=== PATIENT | male | born 1960 | race Caucasian/White ===

== ENCOUNTER 2020-04-14 14:55 | Inpatient (IN) | payer OTHER ==
[~2020-04-14] VITALS: Ht 187.9 cm; Wt 134.8 kg
[2020-04-14 15:26] LABS: BASOPHILS % (AUTO) 1 % (0-10); EOSINOPHILS % (AUTO) 1 % (0-10); HEMATOCRIT 39 % (40-54); HEMOGLOBIN 13.3 G/DL (13.3-17.7); LYMPHOCYTES % (AUTO) 24 % (12-44); MEAN CORPUSCULAR HEMOGLOBIN 28 PG (25-34); MEAN CORPUSCULAR HGB CONC 34 G/DL (32-36); MEAN CORPUSCULAR VOLUME 82 FL (80-99); MEAN PLATELET VOLUME 10.6 FL (7.4-10.4); MONOCYTES % (AUTO) 10 % (0-12); NEUTROPHILS % (AUTO) 63 % (42-75); PLATELET COUNT 213 10^3/uL (130-400); WHITE BLOOD COUNT 5.7 10^3/uL (4.3-11.0)
[2020-04-14 15:27] LABS: BASOPHILS # (AUTO) 0.1 10^3/uL (0.0-0.1); EOSINOPHILS # (AUTO) 0.1 10^3/uL (0.0-0.3); LYMPHOCYTES # (AUTO) 1.4 X 10^3 (1.0-4.0); MONOCYTES # (AUTO) 0.6 X 10^3 (0.0-1.0); NEUTROPHILS # (AUTO) 3.6 X 10^3 (1.8-7.8)
--- NOTE | 2020-04-14 15:32 | Diagnostic Imaging Report ---
INDICATION: Chest pain, COVID infection. TECHNIQUE: Frontal chest obtained at 03:14 p.m. FINDINGS: Heart and mediastinal silhouette are normal in appearance. The lungs are clear. There is no pneumothorax or pleural fluid. IMPRESSION: Negative chest. Dictated by: Dictated on workstation # [id number]
[2020-04-14] MEDS ORDERED: NS (IVPB) 0 ML ONE (15:33)
[2020-04-14] MEDS ORDERED: dilTIAZem DRIP PRE-MIX 125 ML IV ONE (15:33)
[2020-04-14] MEDS ORDERED: dilTIAZem DRIP PRE-MIX 125 ML IV SCH ×3 (15:45→20:30)
[2020-04-14 15:54] LABS: ALANINE AMINOTRANSFERASE 133 U/L (0-55); ALKALINE PHOSPHATASE 63 U/L (40-136); BILIRUBIN,TOTAL 0.6 MG/DL (0.1-1.0); BUN/CREATININE RATIO 9; CALCIUM 8.9 MG/DL (8.5-10.1); CARBON DIOXIDE 25 MMOL/L (21-32); CHLORIDE 101 MMOL/L (98-107); CREATININE SERUM 1.02 MG/DL (0.60-1.30); GFR ESTIMATED > 60; GLUCOSE 106 MG/DL (70-105); POTASSIUM 2.8 MMOL/L (3.6-5.0); SODIUM 140 MMOL/L (135-145)
[2020-04-14 15:55] LABS: ALBUMIN 4.3 GM/DL (3.2-4.5); TOTAL PROTEIN 6.9 GM/DL (6.4-8.2)
[2020-04-14] MEDS ORDERED: Losartan (16:19)
[2020-04-14] MEDS ORDERED: PANT40TA52 PO (16:19)
--- NOTE | 2020-04-14 16:27 | ED General ---
General Chief Complaint: Cardiac/General Problems Stated Complaint: CHEST PAIN Nursing Triage Note: Pt presents from [facility] Walk In Care visit via 911, [facility] presents with 59 y/o male pt with chief c/o pressure of a congestion feeling since Sat night. Temp Sat night 101.0. Arrived to clinic in Sinus tachycardia/arrythmia 160's with HTN. EMS has delivered Adenocard 6 followed by 12 mg IV, Cardizem bolus 25 mg IV. Pt was given Labatolol 20 mg IV also. Arrived in a sinus tachy arrythmia. COVID positive and Flu negative. Nursing Sepsis Screen: Possible Sepsis Risk History of Present Illness Date Seen by Provider: Apr 14, 2020 Time Seen by Provider: 15:00 Initial Comments Patient is a 5-year-old male who presents from urgent care after complaining of chest pressure and chest chest pain and intermittent fever with change in taste. Symptom onset was 4 days ago. Chest pressure began yesterday with right-sided chest pain beginning several hours prior to ED arrival. Patient denies current fever, nausea, vomiting, sweats shortness of breath. No abdominal pain nausea vomiting. No leg pain or swelling. Patient given adenosine in the ambulance prior to ED arrival. Patient in a flutter with variable rate on ED arrival. No history of coronary disease, CAD or congestive heart failure. But does take blood pressure medications daily. Patient is a non-smoker. No other acute symptoms or complaints. Covid testing was performed at urgent care prior to patient's arrival and confirmed positive Covid status. Timing/Duration: 1-3 Hours Severity: Moderate Modifying Factors: improves with Other Associated Systoms: Shortness of Air Allergies and Home Medications Allergies Coded Allergies: No Known Drug Allergies (Unverified , 04/14/20) Patient Home Medication List Home Medication List Reviewed: Yes Review of Systems Review of Systems Constitutional: see HPI EENTM: see HPI Respiratory: see HPI Cardiovascular: see HPI Gastrointestinal: see HPI Genitourinary: see HPI Musculoskeletal: see HPI Skin: see HPI Psychiatric/Neurological: See HPI Hematologic/Lymphatic: See HPI Immunological/Allergic: see HPI All Other Systems Reviewed Negative Unless Noted: Yes Past Lctsqpk-Svnfug-Dpgxcz Hx Past Med/Social Hx: Reviewed Nursing Past Med/Soc Hx Patient Social History Alcohol Use: Occasionally Uses Smoking Status: Former Smoker Type Used: Cigarettes Former Smoker, Quit: Jun 11, 2019 Recent Infectious Disease Expo: No Immunizations Up To Date Date of Influenza Vaccine: Jan 11, 2020 Physical Exam Vital Signs Capillary Refill : Less Than 3 Seconds Height, Weight, BMI Height: '" Weight: lbs. oz. kg; 41.00 BMI Method: General Appearance: Other Eyes: Bilateral Eye Normal Inspection, Bilateral Eye PERRL, Bilateral Eye Other (Conjunctiva injected.) HEENT: PERRL/EOMI, Moist Mucous Membranes Neck: Full Range of Motion, Supple Respiratory: Chest Non Tender, Normal Breath Sounds Cardiovascular: Irregularly Irregular Gastrointestinal: Non Tender, Soft Extremity: No Calf Tenderness Neurologic/Psychiatric: Alert, Oriented x3 Skin: Normal Color Lymphatic: No Adenopathy Progress/Results/Core Measures Suspected Sepsis Recent Fever Within 48 Hours: No Infection Criteria Present: Suspected New Infection New/Unexplained Altered Menta: No Sepsis Screen: Possible Sepsis Risk SIRS Temperature: Pulse: 103 Respiratory Rate: 27 Laboratory Tests 04/14/20 15:10: White Blood Count 5.7 Blood Pressure 139 /82 Mean: 101 Laboratory Tests 04/14/20 15:10: Creatinine 1.02, Platelet Count 213, Total Bilirubin 0.6 Results/Orders Lab Results Laboratory Tests Test 04/14/20 15:10 Range/Units White Blood Count 5.7 4.3-11.0 10^3/uL Red Blood Count 4.79 4.35-5.85 10^6/uL Hemoglobin 13.3 13.3-17.7 G/DL Hematocrit 39 L 40-54 % Mean Corpuscular Volume 82 80-99 FL Mean Corpuscular Hemoglobin 28 25-34 PG Mean Corpuscular Hemoglobin Concent 34 32-36 G/DL Red Cell Distribution Width 15.0 H 10.0-14.5 % Platelet Count 213 130-400 10^3/uL Mean Platelet Volume 10.6 H 7.4-10.4 FL Immature Granulocyte % (Auto) 0 % Neutrophils (%) (Auto) 63 42-75 % Lymphocytes (%) (Auto) 24 12-44 % Monocytes (%) (Auto) 10 0-12 % Eosinophils (%) (Auto) 1 0-10 % Basophils (%) (Auto) 1 0-10 % Neutrophils # (Auto) 3.6 1.8-7.8 X 10^3 Lymphocytes # (Auto) 1.4 1.0-4.0 X 10^3 Monocytes # (Auto) 0.6 0.0-1.0 X 10^3 Eosinophils # (Auto) 0.1 0.0-0.3 10^3/uL Basophils # (Auto) 0.1 0.0-0.1 10^3/uL Immature Granulocyte # (Auto) 0.0 0.0-0.1 10^3/uL Sodium Level 140 135-145 MMOL/L Potassium Level 2.8 L 3.6-5.0 MMOL/L Chloride Level 101 98-107 MMOL/L Carbon Dioxide Level 25 21-32 MMOL/L Anion Gap 14 5-14 MMOL/L Blood Urea Nitrogen 9 7-18 MG/DL Creatinine 1.02 0.60-1.30 MG/DL Estimat Glomerular Filtration Rate > 60 BUN/Creatinine Ratio 9 Glucose Level 106 H 70-105 MG/DL Calcium Level 8.9 8.5-10.1 MG/DL Corrected Calcium 8.7 8.5-10.1 MG/DL Total Bilirubin 0.6 0.1-1.0 MG/DL Aspartate Amino Transf (AST/SGOT) 86 H 5-34 U/L Alanine Aminotransferase (ALT/SGPT) 133 H 0-55 U/L Alkaline Phosphatase 63 40-136 U/L Troponin I < 0.30 <0.30 NG/ML Pro-B-Type Natriuretic Peptide 1390.0 H <75.0 PG/ML Total Protein 6.9 6.4-8.2 GM/DL Albumin 4.3 3.2-4.5 GM/DL My Orders Orders - NICHOLE ALSTON DO Cbc With Automated Diff (04/14/20 15:13) Comprehensive Metabolic Panel (04/14/20 15:13) Chest 1 View Ap/Pa Only (04/14/20 15:13) Ekg-Prn For Chest Pain Or Rhyt (04/14/20 15:13) Troponin I Fs (04/14/20 15:13) Probnp Fs (04/14/20 15:13) Ns (Ivpb) (Sodium Chloride 0.9% Ivpb Bag (04/14/20 15:33) Diltiazem Drip Pre-Mix (Cardizem Drip Pr (04/14/20 15:33) Diltiazem Drip Pre-Mix (Cardizem Drip Pr (04/14/20 15:45) Vital Signs/I&O Capillary Refill : Less Than 3 Seconds Blood Pressure Mean: 101 Departure Communication (Admissions) EKG: Atrial flutter with variable block and rate in the 130s. Chest x-ray: No acute cardiopulmonary disease. Patient in a flutter with variable block. Cardizem drip initiated for rate control. Currently denies chest pain or shortness of breath while in the emergency department. Covid status positive. Will admit admit to hospitalist service at [facility]. Impression Primary Impression: Atrial flutter Additional Impressions: COVID-19 Accelerated hypertension Disposition: ADMITTED INPATIENT Condition: Critical Admissions Decision to Admit Reason: Admit from ER (General) Decision to Admit/Date: Apr 14, 2020 Time/Decision to Admit Time: 16:30 Departure-Patient Inst. Decision time for Depature: 16:30 NICHOLE ALSTON DO Apr 14, 2020 16:27
[2020-04-14] MEDS ORDERED: ENOXAPARIN 60 MG/0.6 ML (LOVENOX) SYR SC ONE (16:45)
[2020-04-14] MEDS ORDERED: DIGOXIN 0.25 MG/ML (LANOXIN) 2 ML AMP IV ONE (16:45)
[2020-04-14] MEDS ORDERED: NS IV 1000 ML 1,000 ML IV SCH (17:00)
[2020-04-14] MEDS ORDERED: LOSA100T57 PO (17:39)
[2020-04-14] MEDS ORDERED: diphenhydrAMINE 25 MG TAB (BENADRYL) PO PRN (20:15)
[2020-04-14] MEDS ORDERED: ONDANSETRON 4 MG (ZOFRAN) ORAL DISSOLVE TAB PO PRN (20:15)
[2020-04-14] MEDS ORDERED: MELATONIN 3 MG TABLET PO PRN (20:15)
[2020-04-14] MEDS ORDERED: ALPRAZolam 0.5 MG (XANAX) TAB PO PRN (20:15)
[2020-04-14] MEDS ORDERED: ONDANSETRON 4 MG/2 ML (SDV) Z0FRAN IVP PRN (20:15)
[2020-04-14] MEDS ORDERED: polyethylene glycoL POWDER 17 GM (MIRALAX) PACK PO PRN (20:15)
[2020-04-14] MEDS: NS IV 1000 ML 1,000 ML IV SCH (20:37)
[2020-04-14] MEDS ORDERED: POTASSIUM CL 10MEQ/50ML IVPB 300 ML IV ONE (21:07)
[2020-04-14] MEDS ORDERED: meTOprolol 5 MG/5 ML (LOPRESSOR) VIAL ONE (21:08)
[2020-04-14] MEDS: ACETAMINOPHEN 325 MG TABLET PO PRN (21:18)
[2020-04-14] MEDS: POTASSIUM CL 10MEQ/50ML IVPB 50 ML IV SCH ×4 (21:18→23:40)
[2020-04-14] MEDS: meTOprolol 5 MG/5 ML (LOPRESSOR) VIAL IV SCH (21:18)
[2020-04-14] MEDS: ENOXAPARIN 300 MG/3 ML (LOVENOX) MULTI-DOSE VIAL SQ SCH (21:25)
[2020-04-14] MEDS ORDERED: CATHETER FLUSH 10 ML SYR IV PRN (23:00)
[2020-04-14] MEDS ORDERED: NS 100 ML (IVPB) BAG IV ONE (23:00)
[2020-04-14] MEDS ORDERED: HOLD METFORMIN - RECEIVED CONTRAST 20 ML VIAL IV SCH (23:00)
[2020-04-14] MEDS ORDERED: IOHEXOL 350 MG/ML 100 ML (OMNIPAQUE 350) VIAL IV ONE (23:00)
[2020-04-15] MEDS: POTASSIUM CL 10MEQ/50ML IVPB 50 ML IV SCH ×5 (00:41→05:23)
[2020-04-15 03:45] LABS: BASOPHILS % (AUTO) 1 % (0-10); EOSINOPHILS # (AUTO) 0.1 10^3/uL (0.0-0.3); EOSINOPHILS % (AUTO) 1 % (0-10); HEMATOCRIT 36 % (40-54); LYMPHOCYTES # (AUTO) 1.6 10^3/uL (1.0-4.0); LYMPHOCYTES % (AUTO) 31 % (12-44); MEAN CORPUSCULAR HEMOGLOBIN 28 pg (25-34); MEAN CORPUSCULAR HGB CONC 34 g/dL (32-36); MEAN CORPUSCULAR VOLUME 85 fL (80-99); MEAN PLATELET VOLUME 10.4 fL (9.0-12.2); MONOCYTES # (AUTO) 0.5 10^3/uL (0.0-1.0); MONOCYTES % (AUTO) 9 % (0-12); NEUTROPHILS # (AUTO) 3.1 10^3/uL (1.8-7.8); NEUTROPHILS % (AUTO) 59 % (42-75); PLATELET COUNT 187 10^3/uL (130-400); WHITE BLOOD COUNT 5.3 10^3/uL (4.3-11.0)
[2020-04-15 04:04] LABS: ALANINE AMINOTRANSFERASE 110 U/L (0-55); ALBUMIN 3.6 GM/DL (3.2-4.5); ALKALINE PHOSPHATASE 47 U/L (40-136); BILIRUBIN,DIRECT 0.3 MG/DL (0.0-0.3); BILIRUBIN,INDIRECT 0.3 MG/DL; BILIRUBIN,TOTAL 0.6 MG/DL (0.1-1.0); BUN/CREATININE RATIO 8; CALCIUM 7.8 MG/DL (8.5-10.1); CARBON DIOXIDE 22 MMOL/L (21-32); CHLORIDE 107 MMOL/L (98-107); CREATININE SERUM 1.01 MG/DL (0.60-1.30); GFR ESTIMATED > 60; GLUCOSE 108 MG/DL (70-105); PHOSPHORUS 3.4 MG/DL (2.3-4.7); POTASSIUM 3.1 MMOL/L (3.6-5.0); SODIUM 142 MMOL/L (135-145); TOTAL PROTEIN 6.2 GM/DL (6.4-8.2)
[2020-04-15 04:07] LABS: MAGNESIUM 0.9 MG/DL (1.6-2.4)
[2020-04-15] MEDS: MAGNESIUM 1 GM/100 ML IVPB 100 ML IV SCH ×5 (04:15→07:26)
[2020-04-15] MEDS: NS IV 1000 ML 1,000 ML IV SCH ×4 (04:16→23:50)
--- NOTE | 2020-04-15 05:10 | Pulmonary Consultation ---
History of Present Illness History of Present Illness Date Seen by Provider: Apr 15, 2020 Time Seen by Provider: 05:05 Date of Admission History of Present Illness 59yo presented to ED secondary to worsening respiratory failure over the last 4 days. Chest pressure began yesterday with right-sided chest pain beginning several hours prior to ED arrival. Patient denies current fever, nausea, vomiting, sweats shortness of breath. No abdominal pain nausea vomiting. No leg pain or swelling. Patient given adenosine in the ambulance prior to ED arrival. Found to have AFlutter upon admission. No history of coronary disease, CAD or congestive heart failure. Patient is a non-smoker. Allergies and Home Medications Allergies Coded Allergies: No Known Drug Allergies (Unverified , 04/14/20) Home Medications Apixaban 5 Mg Tablet, 5 MG PO BID Prescribed by: RUTHIE CROCKER on 04/18/20 0807 Aspirin 81 Mg Tablet.dr, 81 MG PO DAILY Prescribed by: RUTHIE CROCKER on 04/18/20 0807 Diltiazem HCl 240 Mg Cap.er.24h, 240 MG PO DAILY Prescribed by: RUTHIE CROCKER on 04/18/20 0807 Hydrochlorothiazide 25 Mg Tablet, 25 MG PO DAILY Prescribed by: RUTHIE CROCKER on 04/18/20 0807 Losartan Potassium 100 Mg Tablet, 100 MG PO DAILY, (Reported) Metoprolol Succinate 25 Mg Tab.er.24h, 25 MG PO DAILY Prescribed by: RUTHIE CROCKER on 04/18/20 0807 Pantoprazole Sodium 40 Mg Tablet.dr, 40 MG PO DAILY, (Reported) Past Qgvmlqe-Ibothi-Bulxda Hx Past Med/Social Hx: Reviewed Nursing Past Med/Soc Hx Patient Social History Alcohol Use: Occasionally Uses Smoking Status: Former Smoker Type Used: Cigarettes Former Smoker, Quit: Jun 11, 2019 Recent Infectious Disease Expo: No Recent Hopitalizations: No Have you traveled recently?: No Immunizations Up To Date Date of Influenza Vaccine: Feb 10, 2020 Seasonal Allergies Seasonal Allergies: Yes (Environmental) Past Medical History Surgeries: Yes (Scapula bone removal but 1" for bone CA, hernia surgery x 2) Respiratory: No Cardiac: Yes High Cholesterol, Hypertension Neurological: No Genitourinary: No Gastrointestinal: Yes Gastroesophageal Reflux Musculoskeletal: No Endocrine: No HEENT: No Cancer: Yes (R scapula) Bone Psychosocial: No Integumentary: No Blood Disorders: No Review of Systems Time Seen by Provider: 05:13 Sepsis Event Evaluation Height, Weight, BMI Height: '" Weight: lbs. oz. kg; 38.57 BMI Method: Exam Exam Vital Signs Date Time Temp Pulse Resp B/P (MAP) Pulse Ox O2 Delivery O2 Flow Rate FiO2 04/15/20 04:00 76 18 130/89 (103) 96 Nasal Cannula 2.00 04/15/20 03:00 78 17 132/88 (103) 94 Nasal Cannula 2.00 04/15/20 02:49 37.4 Nasal Cannula 2.00 04/15/20 02:00 78 15 130/84 (99) 95 Nasal Cannula 2.00 04/15/20 01:00 73 13 134/81 (98) 96 Nasal Cannula 2.00 04/15/20 01:00 75 04/15/20 00:40 37.3 04/15/20 00:00 78 18 133/83 (100) 96 Nasal Cannula 2.00 04/14/20 23:05 37.9 Nasal Cannula 2.00 04/14/20 23:00 83 18 134/87 (103) 96 Room Air 04/14/20 22:03 94 Room Air 04/14/20 22:00 95 25 141/89 (106) 95 Room Air 04/14/20 21:30 168 15 111/83 (92) 94 Room Air 04/14/20 21:18 37.9 04/14/20 21:00 126 15 95/83 (87) 94 Room Air 04/14/20 20:45 152 21 147/85 (105) 97 Room Air 04/14/20 20:30 170 16 147/85 (105) 93 Room Air 04/14/20 20:20 172 04/14/20 20:10 37.9 170 24 164/119 (134) 96 Room Air 04/14/20 19:15 37.1 170 22 145/90 (101) 97 Room Air 2.00 04/14/20 14:56 38.2 103 27 139/82 (101) 97 Nasal Cannula 2.00 I & O 04/15/20 07:00 Intake Total 2520 ml Output Total 450 ml Balance 2070 ml Height & Weight Height: '" Weight: lbs. oz. kg; 38.57 BMI Method: General Appearance: Other HEENT: PERRL/EOMI, Moist Mucous Membranes Neck: Full Range of Motion, Supple Respiratory: Chest Non Tender, Normal Breath Sounds Cardiovascular: Irregularly Irregular Capillary Refill: Less Than 3 Seconds Extremity: No Calf Tenderness Neurologic/Psychiatric: Alert, Oriented x3 Skin: Normal Color Lymphatic: No Adenopathy Results Lab Laboratory Tests 04/14/20 15:10 04/15/20 03:35 Assessment/Plan Assessment/Plan COVID -Tested positive 03/14 -Symptoms started Sunday -currently on 2 liters of oxygen Afib/flutter RVR-- monitor -Cardizem gtt -IVF -Cardiology is consulted Elevated LFTs with hx of fatty liver Drinks beer 3-4nights/wk Hypokalemia/hypomag -Replace - Hx of tobacco use JACE ALBRIGHT DO Apr 15, 2020 05:10
[2020-04-15] MEDS: KCL 20 MEQ TAB (K-DUR) PO SCH (05:23)
[2020-04-15] MEDS: meTOprolol 5 MG/5 ML (LOPRESSOR) VIAL IV SCH ×2 (05:40→11:19)
--- NOTE | 2020-04-15 06:49 | Diagnostic Imaging Report ---
PROCEDURE: CT angiography of the chest with contrast. TECHNIQUE: Multiple contiguous axial images were obtained through the chest after uneventful bolus administration of intravenous contrast. 3D reconstructed CTA MIP acquisitions were also performed. Auto Exposure Controls were utilized during the CT exam to meet ALARA standards for radiation dose reduction. INDICATION: Hypertension. Atrial flutter. COVID positive. COMPARISON: Chest radiograph 04/14/2020. FINDINGS: No pulmonary artery filling defects. Normal caliber thoracic aorta without evidence of aneurysm dissection. Normal heart size. No pericardial effusion. No mediastinal or hilar lymphadenopathy. Moderate multifocal groundglass opacities in both lungs. No pleural effusion or pneumothorax. Osseous structures are intact. Simple appearing cyst in the liver. Visualized upper abdominal contents are otherwise unremarkable. IMPRESSION: 1. No pulmonary emboli. 2. Moderate multifocal groundglass opacities in both lungs compatible with reported COVID pneumonitis. Dictated by: Dictated on workstation # [id number]
[2020-04-15] MEDS ORDERED: REMDESIVIR INJ 200 MG in NS (IVPB) 210 ML IV NR (09:00)
[2020-04-15] MEDS: dexAMETHasone 6 MG TAB (DECADRON) PO SCH (09:13)
[2020-04-15] MEDS: PANTOPRAZOLE 40 MG (PROTONIX) VIAL IV SCH (09:13)
[2020-04-15] MEDS: ENOXAPARIN 300 MG/3 ML (LOVENOX) MULTI-DOSE VIAL SQ SCH ×2 (09:13→20:07)
[2020-04-15] MEDS: ACETAMINOPHEN 325 MG TABLET PO PRN (09:25)
[2020-04-15] MEDS ORDERED: meTOprolol TARTRATE 25 MG (LOPRESSOR) TABLET ONE (12:39)
[2020-04-15] MEDS ORDERED: diphenhydrAMINE 25 MG TAB (BENADRYL) PO PRN (12:45)
[2020-04-15] MEDS ORDERED: ONDANSETRON 4 MG/2 ML (SDV) Z0FRAN IVP PRN (12:45)
[2020-04-15] MEDS ORDERED: MELATONIN 3 MG TABLET PO PRN (12:45)
[2020-04-15] MEDS ORDERED: ALPRAZolam 0.5 MG (XANAX) TAB PO PRN (12:45)
[2020-04-15] MEDS ORDERED: polyethylene glycoL POWDER 17 GM (MIRALAX) PACK PO PRN ×2 (12:45)
[2020-04-15] MEDS ORDERED: ONDANSETRON 4 MG (ZOFRAN) ORAL DISSOLVE TAB PO PRN (12:45)
--- NOTE | 2020-04-15 13:47 | Consultation-Cardiology ---
HPI-Cardiology Cardiology Consultation Date of Consultation 04/15/20 Date of Admission Time Seen by Provider: 13:43 Indication: Palpitation, atrial fibrillation HPI 59 years old gentleman was transferred from urgent care for chest pain and and palpitation with fever and change of taste, tested positive for COVID-19, noted to have atrial fibrillation with rapid ventricular response. Started on diltiazem drip and converted to sinus rhythm. On my evaluation this morning he was feeling better. Denied any active chest pain. No palpitation. No syncope or near syncopal episodes. Home Medications & Allergies Allergies: Coded Allergies: No Known Drug Allergies (Unverified , 04/14/20) Home Medication List Reviewed: Yes CUY-Xwpxzd-Kfrflz Hx Patient Social History Marital Status: Recreational Drug Use: No Smoking Status: Former Smoker Type Used: Cigarettes Recent Hopitalizations: No Have you traveled recently?: No Immunizations Up To Date Date of Influenza Vaccine: Feb 10, 2020 Past Medical History discussed below Review of Systems-General Review of Systems Constitutional: see HPI; No chills, No diaphoresis, No dizziness, No fever, No malaise, No weakness, No weight gain, No weight loss, No other EENTM: see HPI Respiratory: see HPI, dyspnea on exertion Cardiovascular: see HPI, chest pain, palpitations Gastrointestinal: see HPI Genitourinary: see HPI Musculoskeletal: see HPI Skin: see HPI Psychiatric/Neurological: See HPI All Other Systems Reviewed Negative Unless Noted: Yes Reviewed Test Results Reviewed Test Results Lab Laboratory Tests Test 04/14/20 15:10 04/15/20 03:35 04/15/20 11:23 Range/Units White Blood Count 5.7 5.3 4.3-11.0 10^3/uL Red Blood Count 4.79 4.22 L 4.30-5.52 10^6/uL Hemoglobin 13.3 12.0 L 13.3-17.7 g/dL Hematocrit 39 L 36 L 40-54 % Mean Corpuscular Volume 82 85 80-99 fL Mean Corpuscular Hemoglobin 28 28 25-34 pg Mean Corpuscular Hemoglobin Concent 34 34 32-36 g/dL Red Cell Distribution Width 15.0 H 15.1 H 10.0-14.5 % Platelet Count 213 187 130-400 10^3/uL Mean Platelet Volume 10.6 H 10.4 9.0-12.2 fL Immature Granulocyte % (Auto) 0 0 % Neutrophils (%) (Auto) 63 59 42-75 % Lymphocytes (%) (Auto) 24 31 12-44 % Monocytes (%) (Auto) 10 9 0-12 % Eosinophils (%) (Auto) 1 1 0-10 % Basophils (%) (Auto) 1 1 0-10 % Neutrophils # (Auto) 3.6 3.1 1.8-7.8 10^3/uL Lymphocytes # (Auto) 1.4 1.6 1.0-4.0 10^3/uL Monocytes # (Auto) 0.6 0.5 0.0-1.0 10^3/uL Eosinophils # (Auto) 0.1 0.1 0.0-0.3 10^3/uL Basophils # (Auto) 0.1 0.0 0.0-0.1 10^3/uL Immature Granulocyte # (Auto) 0.0 0.0 0.0-0.1 10^3/uL Sodium Level 140 142 135-145 MMOL/L Potassium Level 2.8 L 3.1 L 3.6-5.0 MMOL/L Chloride Level 101 107 98-107 MMOL/L Carbon Dioxide Level 25 22 21-32 MMOL/L Anion Gap 14 13 5-14 MMOL/L Blood Urea Nitrogen 9 8 7-18 MG/DL Creatinine 1.02 1.01 0.60-1.30 MG/DL Estimat Glomerular Filtration Rate > 60 > 60 BUN/Creatinine Ratio 9 8 Glucose Level 106 H 108 H 70-105 MG/DL Calcium Level 8.9 7.8 L 8.5-10.1 MG/DL Corrected Calcium 8.7 8.1 L 8.5-10.1 MG/DL Total Bilirubin 0.6 0.6 0.1-1.0 MG/DL Aspartate Amino Transf (AST/SGOT) 86 H 60 H 5-34 U/L Alanine Aminotransferase (ALT/SGPT) 133 H 110 H 0-55 U/L Alkaline Phosphatase 63 47 40-136 U/L Troponin I < 0.30 0.207 H <0.028 NG/ML Pro-B-Type Natriuretic Peptide 1390.0 H <75.0 PG/ML Total Protein 6.9 6.2 L 6.4-8.2 GM/DL Albumin 4.3 3.6 3.2-4.5 GM/DL Phosphorus Level 3.4 2.3-4.7 MG/DL Magnesium Level 0.9 *L 1.8 1.6-2.4 MG/DL Direct Bilirubin 0.3 0.0-0.3 MG/DL Indirect Bilirubin 0.3 MG/DL Physical Exam Physical Exam Vital Signs Vital Signs - First Documented 04/14/20 14:56 Temp 38.2 Pulse 103 Resp 27 B/P (MAP) 139/82 (101) Pulse Ox 97 O2 Delivery Nasal Cannula O2 Flow Rate 2.00 Capillary Refill : Less Than 3 Seconds Height, Weight, BMI Height: '" Weight: lbs. oz. kg; 38.57 BMI Method: General Appearance: Other Eyes: Bilateral Eye Normal Inspection, Bilateral Eye PERRL, Bilateral Eye Other (Conjunctiva injected.) HEENT: PERRL/EOMI, Moist Mucous Membranes Neck: Full Range of Motion, Supple Respiratory: Chest Non Tender, Normal Breath Sounds Cardiovascular: Regular Rate, Rhythm, No Murmur Gastrointestinal: Non Tender, Soft Back: Normal Inspection, No CVA Tenderness, No Vertebral Tenderness Extremity: No Calf Tenderness Neurologic/Psychiatric: Alert, Oriented x3 Skin: Normal Color Lymphatic: No Adenopathy A/P-Cardiology Admission Diagnosis chest pain Coronary artery disease Paroxysmal atrial fibrillation COVID-19 Assessment/Plan chest pain, elevated troponin level, probably secondary to tachycardia with atrial fibrillation, currently chest pain-free. Patient will need to be monitored, will consider doing stress test prior to discharge or as an outpatient otherwise will proceed with cardiac catheterization if he started having chest pain again. Paroxysmal atrial fibrillation, converted to sinus rhythm on Cardizem drip. I will change him to Cardizem and oral anticoagulation COVID-19 pneumonia, managed by primary care team High alcohol use, educated on avoiding alcohol Mildly elevated LFTs, monitor liver enzymes MARIELOS JUDGE MD Apr 15, 2020 13:47
[2020-04-15] MEDS ORDERED: LOSARTAN 100 MG (COZAAR) TABLET ONE (17:24)
[2020-04-15] MEDS ORDERED: ENOXAPARIN 300 MG/3 ML (LOVENOX) MULTI-DOSE VIAL SQ SCH (21:00)
[2020-04-16] MEDS: ACETAMINOPHEN 325 MG TABLET PO PRN (01:25)
[2020-04-16] MEDS: KCL 20 MEQ TAB (K-DUR) PO SCH (02:16)
[2020-04-16] MEDS: MAGNESIUM 1 GM/100 ML IVPB 100 ML IV SCH (02:16)
[2020-04-16] MEDS: POTASSIUM CL 10MEQ/50ML IVPB 50 ML IV SCH ×7 (02:16→15:21)
[2020-04-16 04:36] LABS: BASOPHILS % (AUTO) 0 % (0-10); EOSINOPHILS % (AUTO) 0 % (0-10); HEMATOCRIT 37 % (40-54); HEMOGLOBIN 11.9 g/dL (13.3-17.7); LYMPHOCYTES # (AUTO) 0.8 10^3/uL (1.0-4.0); LYMPHOCYTES % (AUTO) 14 % (12-44); MEAN CORPUSCULAR HEMOGLOBIN 28 pg (25-34); MEAN CORPUSCULAR HGB CONC 32 g/dL (32-36); MEAN CORPUSCULAR VOLUME 85 fL (80-99); MEAN PLATELET VOLUME 10.7 fL (9.0-12.2); MONOCYTES # (AUTO) 0.4 10^3/uL (0.0-1.0); MONOCYTES % (AUTO) 8 % (0-12); NEUTROPHILS # (AUTO) 4.2 10^3/uL (1.8-7.8); NEUTROPHILS % (AUTO) 78 % (42-75); PLATELET COUNT 179 10^3/uL (130-400); WHITE BLOOD COUNT 5.4 10^3/uL (4.3-11.0)
[2020-04-16 04:39] LABS: CHLORIDE 107 MMOL/L (98-107); POTASSIUM 3.3 MMOL/L (3.6-5.0); SODIUM 139 MMOL/L (135-145)
[2020-04-16 04:40] LABS: ALBUMIN 3.8 GM/DL (3.2-4.5)
[2020-04-16 04:41] LABS: CALCIUM 8.4 MG/DL (8.5-10.1); TRIGLYCERIDES 94 MG/DL (<150); VLDL CHOLESTEROL 19 MG/DL (5-40)
[2020-04-16 04:42] LABS: GLUCOSE 139 MG/DL (70-105); TOTAL PROTEIN 6.6 GM/DL (6.4-8.2)
[2020-04-16 04:43] LABS: CARBON DIOXIDE 21 MMOL/L (21-32)
[2020-04-16 04:44] LABS: BILIRUBIN,TOTAL 0.5 MG/DL (0.1-1.0)
[2020-04-16 04:45] LABS: PHOSPHORUS 3.2 MG/DL (2.3-4.7)
[2020-04-16 04:46] LABS: ALKALINE PHOSPHATASE 52 U/L (40-136); CHOLESTEROL 144 MG/DL (< 200); CREATININE SERUM 0.92 MG/DL (0.60-1.30); GFR ESTIMATED > 60
--- NOTE | 2020-04-16 04:46 | Pulmonary Progress Note ---
Subjective Time Seen by a Provider: 04:44 Sepsis Event Evaluation Height, Weight, BMI Height: '" Weight: lbs. oz. kg; 38.57 BMI Method: Exam Exam Vital Signs Date Time Temp Pulse Resp B/P (MAP) Pulse Ox O2 Delivery O2 Flow Rate FiO2 04/16/20 04:00 68 28 97 Nasal Cannula 2.00 04/16/20 03:00 72 14 148/94 (112) 98 Nasal Cannula 2.00 04/16/20 02:00 72 14 156/99 (118) 98 Nasal Cannula 2.00 04/16/20 01:00 71 14 150/96 (114) 97 Nasal Cannula 2.00 04/16/20 01:00 76 04/16/20 00:00 75 22 153/97 (115) 93 Nasal Cannula 2.00 04/15/20 23:43 96 Nasal Cannula 2.00 04/15/20 23:00 78 22 155/96 (115) 95 Nasal Cannula 2.00 04/15/20 22:00 80 18 166/98 (120) 97 Nasal Cannula 2.00 04/15/20 21:00 85 21 172/97 (122) 96 Nasal Cannula 2.00 04/15/20 20:00 89 18 163/103 (123) 94 Nasal Cannula 2.00 04/15/20 19:31 37.3 04/15/20 19:00 86 21 169/101 (123) 96 Nasal Cannula 2.00 04/15/20 19:00 87 04/15/20 18:00 87 19 167/100 (122) 97 Nasal Cannula 2.00 04/15/20 17:00 82 28 165/104 (124) 95 Nasal Cannula 2.00 04/15/20 16:05 37.6 04/15/20 16:00 77 28 168/99 (122) 93 Nasal Cannula 2.00 04/15/20 15:00 82 20 165/104 (124) 95 Nasal Cannula 2.00 04/15/20 14:00 87 22 162/88 (112) 96 Nasal Cannula 2.00 04/15/20 13:45 37.6 04/15/20 13:00 79 04/15/20 13:00 83 24 162/89 (113) 95 Nasal Cannula 2.00 04/15/20 12:00 92 22 158/84 (108) 97 Nasal Cannula 2.00 04/15/20 11:20 38.1 04/15/20 11:00 86 20 163/88 (113) 95 Nasal Cannula 2.00 04/15/20 10:00 81 16 171/87 (115) 96 Nasal Cannula 2.00 04/15/20 09:25 38.1 04/15/20 09:00 87 18 179/89 (119) 94 Nasal Cannula 2.00 04/15/20 08:00 82 19 173/94 (120) 95 Nasal Cannula 2.00 04/15/20 07:57 37.8 04/15/20 07:00 80 16 141/88 (105) 95 Nasal Cannula 2.00 04/15/20 07:00 78 04/15/20 06:00 78 19 138/89 (105) 93 Nasal Cannula 2.00 04/15/20 05:00 79 28 131/83 (99) 96 Nasal Cannula 2.00 I & O 04/16/20 07:00 Intake Total 3565 ml Output Total 5025 ml Balance -1460 ml Height & Weight Height: '" Weight: lbs. oz. kg; 38.57 BMI Method: General Appearance: Other HEENT: PERRL/EOMI, Moist Mucous Membranes Neck: Full Range of Motion, Supple Respiratory: Chest Non Tender, Normal Breath Sounds Cardiovascular: Regular Rate, Rhythm, No Murmur Capillary Refill: Less Than 3 Seconds Extremity: No Calf Tenderness Neurologic/Psychiatric: Alert, Oriented x3 Skin: Normal Color Lymphatic: No Adenopathy Results Lab Laboratory Tests 04/14/20 15:10 04/15/20 03:35 04/16/20 04:05 Assessment/Plan Assessment/Plan COVID -Tested positive 3 -Symptoms started Sunday -currently on 2 liters of oxygen -CVP is pending Afib/flutter RVR-- monitor -Cardizem gtt- Now off -IVF -Cardiology is consulted Elevated LFTs with hx of fatty liver Drinks beer 3-4nights/wk Hypokalemia -Replace - Hx of tobacco use JACE ALBRIGHT DO Apr 16, 2020 04:46
[2020-04-16 04:47] LABS: BUN/CREATININE RATIO 10
[2020-04-16 04:48] LABS: HDL CHOLESTEROL 35 MG/DL (40-60)
[2020-04-16 04:49] LABS: ALANINE AMINOTRANSFERASE 98 U/L (0-55); MAGNESIUM 1.8 MG/DL (1.6-2.4)
--- NOTE | 2020-04-16 07:33 | Diagnostic Imaging Report ---
INDICATION: DYSPNEA. TECHNIQUE: Single view chest 1:35 AM. CORRELATION STUDY: 04/14/2020 FINDINGS: Heart size enlarged. Vasculature within normal limits. Scattered faint bilateral pulmonary opacities are present appearing adversely changed from prior. No appreciable effusion or pneumothorax. IMPRESSION: 1. Bilateral faint pulmonary opacities are present, adversely changed from prior. While nonspecific can be associated with Covid-19 pneumonia versus edema. Dictated by: Dictated on workstation # [id number]
[2020-04-16] MEDS: LOSARTAN 100 MG (COZAAR) TABLET PO SCH (08:07)
[2020-04-16] MEDS: ENOXAPARIN 300 MG/3 ML (LOVENOX) MULTI-DOSE VIAL SQ SCH ×2 (08:07→20:29)
[2020-04-16] MEDS: ASPIRIN E.C. 81 MG (ECOTRIN) TAB PO SCH (08:08)
[2020-04-16] MEDS: dexAMETHasone 6 MG TAB (DECADRON) PO SCH (08:09)
[2020-04-16] MEDS: PANTOPRAZOLE 40 MG (PROTONIX) VIAL IV SCH (08:09)
[2020-04-16] MEDS: REMDESIVIR INJ 100 MG in NS (IVPB) 230 ML IV SCH (11:36)
[2020-04-16] MEDS ORDERED: NS IV 500 ML 500 ML ONE (12:42)
[2020-04-16 12:57] VITALS: BP 156/95
[2020-04-16 13:15] VITALS: BP 159/93
[2020-04-16 15:22] VITALS: BP 156/89
[2020-04-16 16:10] VITALS: BP 159/97
[2020-04-16 20:36] VITALS: BP 174/90
[2020-04-16 23:34] VITALS: BP 163/93
[2020-04-17 04:51] VITALS: BP 170/96
[2020-04-17 05:40] LABS: BASOPHILS % (AUTO) 0 % (0-10); EOSINOPHILS % (AUTO) 0 % (0-10); HEMATOCRIT 36 % (40-54); HEMOGLOBIN 12.1 g/dL (13.3-17.7); LYMPHOCYTES # (AUTO) 1.3 10^3/uL (1.0-4.0); LYMPHOCYTES % (AUTO) 18 % (12-44); MEAN CORPUSCULAR HEMOGLOBIN 28 pg (25-34); MEAN CORPUSCULAR HGB CONC 34 g/dL (32-36); MEAN CORPUSCULAR VOLUME 84 fL (80-99); MEAN PLATELET VOLUME 11.1 fL (9.0-12.2); MONOCYTES # (AUTO) 0.6 10^3/uL (0.0-1.0); MONOCYTES % (AUTO) 8 % (0-12); NEUTROPHILS # (AUTO) 5.4 10^3/uL (1.8-7.8); NEUTROPHILS % (AUTO) 74 % (42-75); PLATELET COUNT 198 10^3/uL (130-400); WHITE BLOOD COUNT 7.4 10^3/uL (4.3-11.0)
[2020-04-17 05:48] LABS: CHLORIDE 105 MMOL/L (98-107); SODIUM 140 MMOL/L (135-145)
[2020-04-17 05:50] LABS: CALCIUM 9.2 MG/DL (8.5-10.1); GLUCOSE 108 MG/DL (70-105)
[2020-04-17 05:52] LABS: CARBON DIOXIDE 23 MMOL/L (21-32)
[2020-04-17 05:54] LABS: CREATININE SERUM 0.93 MG/DL (0.60-1.30); GFR ESTIMATED > 60; PHOSPHORUS 3.4 MG/DL (2.3-4.7)
[2020-04-17 05:55] LABS: BUN/CREATININE RATIO 11
[2020-04-17 05:57] LABS: MAGNESIUM 1.5 MG/DL (1.6-2.4)
[2020-04-17] MEDS: MAGNESIUM 1 GM/100 ML IVPB 100 ML IV SCH ×7 (06:04→11:14)
[2020-04-17] MEDS: POTASSIUM CL 10MEQ/50ML IVPB 50 ML IV SCH (06:04)
[2020-04-17] MEDS: KCL 20 MEQ TAB (K-DUR) PO SCH ×4 (06:04→09:51)
[2020-04-17] MEDS: dexAMETHasone 6 MG TAB (DECADRON) PO SCH (06:38)
[2020-04-17 08:00] VITALS: BP 166/98
[2020-04-17] MEDS: ASPIRIN E.C. 81 MG (ECOTRIN) TAB PO SCH (08:28)
[2020-04-17] MEDS: LOSARTAN 100 MG (COZAAR) TABLET PO SCH (08:29)
[2020-04-17] MEDS: ENOXAPARIN 300 MG/3 ML (LOVENOX) MULTI-DOSE VIAL SQ SCH (08:30)
[2020-04-17] MEDS: PANTOPRAZOLE 40 MG (PROTONIX) VIAL IV SCH (09:49)
[2020-04-17] MEDS: REMDESIVIR INJ 100 MG in NS (IVPB) 230 ML IV SCH (09:50)
[2020-04-17] MEDS: ACETAMINOPHEN 325 MG TABLET PO PRN (11:13)
--- NOTE | 2020-04-17 11:28 | Progress Note - Hospitalist ---
Subjective HPI/CC On Admission Date Seen by Provider: Apr 17, 2020 Time Seen by Provider: 10:25 Subjective/Events-last exam He is feeling better. He is not having any chest pain. He is not having any palpitations. He does not feel short of breath. He has been up moving around. He has been eating and drinking. He has no complaints or concerns. Objective Exam Vital Signs Vital Signs Date Time Temp Pulse Resp B/P (MAP) Pulse Ox O2 Delivery O2 Flow Rate FiO2 04/17/20 07:00 90 04/17/20 04:51 37.0 16 170/96 (120) 95 Nasal Cannula 2.00 Capillary Refill : Less Than 3 Seconds General Appearance: No Apparent Distress, Obese Respiratory: Lungs Clear, Normal Breath Sounds, No Respiratory Distress Cardiovascular: Regular Rate, Rhythm, No Edema, No Murmur Gastrointestinal: Normal Bowel Sounds, Non Tender, Soft Extremity: Normal Inspection, Non Tender, No Pedal Edema Neurologic/Psychiatric: Alert, Oriented x3, No Motor/Sensory Deficits, Normal Mood/Affect Skin: Normal Color, Warm/Dry Results/Procedures Lab Laboratory Tests 04/17/20 05:20 Patient resulted labs reviewed. Assessment/Plan Assessment and Plan Assess & Plan/Chief Complaint Paroxysmal atrial fibrillation Cardiology consulted, appreciate assistance Continue diltiazem and metoprolol Transition from Lovenox to Eliquis Acute respiratory failure due to COVID-19 Decadron Remdesivir s/p convalescent plasma Supplemental oxygen Elevated LFTs Improving, monitor Hypokalemia Hypomagnesemia Monitor and replace as needed HTN Continue metoprolol, diltiazem, losartan Add HCTZ Hydralazine as needed Obesity Clinically significant, no acute management needs DVT prophylaxis: already receiving therapeutic anticoagulation Diagnosis/Problems Diagnosis/Problems (1) Acute respiratory failure due to COVID-19 Status: Acute (2) Paroxysmal atrial fibrillation Status: Acute (3) Elevated LFTs Status: Acute (4) HTN (hypertension) Status: Acute Qualifiers: Hypertension type: essential hypertension Qualified Codes: I10 - Essential (primary) hypertension (5) Obesity Status: Chronic (6) Hypokalemia Status: Acute (7) Hypomagnesemia Status: Acute RUTHIE CROCKER MD Apr 17, 2020 11:28
[2020-04-17] MEDS ORDERED: HYDROCHLOROTHIAZIDE 25 MG (HCTZ) TAB PO ONE (11:30)
[2020-04-17] MEDS ORDERED: hydrALAZINE (APESOLINE) 20 MG/ML VIAL IV PRN (11:30)
[2020-04-17 12:00] VITALS: BP 155/88
--- NOTE | 2020-04-17 16:17 | Cardiology Progress Note ---
Cardiology SOAP Progress Note Subjective: no cardiac complaint as per the RN. Objective: I&O/Vital Signs 04/17/20 04/17/20 04/17/20 04/17/20 04:51 07:00 08:00 08:00 Temp 37.0 36.9 Pulse 75 90 74 Resp 16 18 B/P (MAP) 170/96 (120) 166/98 (120) Pulse Ox 95 96 95 O2 Delivery Nasal Cannula Nasal Cannula Nasal Cannula O2 Flow Rate 2.00 2.00 2.00 04/17/20 04/17/20 04/17/20 12:00 13:00 16:02 Temp 35.4 Pulse 82 73 Resp 20 B/P (MAP) 155/88 (110) Pulse Ox 93 95 O2 Delivery Nasal Cannula Nasal Cannula O2 Flow Rate 2.00 2.00 04/16/20 23:59 Intake Total 2550 ml Output Total 1300 ml Balance 1250 ml Cardiovascular: regular rate-rhythm Results/Procedures: Labs Laboratory Tests 04/17/20 05:20: White Blood Count 7.4, Red Blood Count 4.30, Hemoglobin 12.1L, Hematocrit 36L, Mean Corpuscular Volume 84, Mean Corpuscular Hemoglobin 28, Mean Corpuscular Hemoglobin Concent 34, Red Cell Distribution Width 14.7H, Platelet Count 198, Mean Platelet Volume 11.1, Immature Granulocyte % (Auto) 1, Neutrophils (%) (Auto) 74, Lymphocytes (%) (Auto) 18, Monocytes (%) (Auto) 8, Eosinophils (%) (Auto) 0, Basophils (%) (Auto) 0, Neutrophils # (Auto) 5.4, Lymphocytes # (Auto) 1.3, Monocytes # (Auto) 0.6, Eosinophils # (Auto) 0.0, Basophils # (Auto) 0.0, Immature Granulocyte # (Auto) 0.0, Sodium Level 140, Potassium Level 3.0L, Chloride Level 105, Carbon Dioxide Level 23, Anion Gap 12, Blood Urea Nitrogen 10, Creatinine 0.93, Estimat Glomerular Filtration Rate > 60, BUN/Creatinine Ratio 11, Glucose Level 108H, Calcium Level 9.2, Phosphorus Level 3.4, Magnesium Level 1.5L 04/17/20 14:18: Potassium Level 4.0 Microbiology 04/14/20 MRSA Screen - Final, Complete MRSA not isolated A/P: Assessment/Dx: chest pain Coronary artery disease Paroxysmal atrial fibrillation COVID-19 Plan: chest pain, elevated troponin level, probably secondary to tachycardia with atrial fibrillation, currently chest pain-free. Patient will need to be monitored, will consider doing stress test prior to discharge or as an outpatient otherwise will proceed with cardiac catheterization if he started having chest pain again. Paroxysmal atrial fibrillation, converted to sinus rhythm on Cardizem drip. currently in sinus rhythm. Continue by mouth Cardizem and oral anticoagulation. COVID-19 pneumonia, managed by primary care team High alcohol use, educated on avoiding alcohol Mildly elevated LFTs, monitor liver enzymes Thank you for your consultation. Please call me if you have any questions. Maira Chen MD, FACP, FACC, FSCAI, FHRS, CCDS Interventional Cardiology Cardiac Electrophysiology Vascular Medicine and Endovascular Interventions Danielito CHEN MD Apr 17, 2020 16:17
[2020-04-17 16:25] VITALS: BP 146/86
[2020-04-17 19:30] VITALS: BP 150/94
[2020-04-17] MEDS: APIXABAN 5 MG (ELIQUIS) TABLET PO SCH (22:24)
[2020-04-18 00:53] VITALS: BP 141/97
[2020-04-18 06:01] LABS: BASOPHILS % (AUTO) 0 % (0-10); EOSINOPHILS % (AUTO) 0 % (0-10); HEMATOCRIT 39 % (40-54); HEMOGLOBIN 13.1 g/dL (13.3-17.7); LYMPHOCYTES # (AUTO) 1.4 10^3/uL (1.0-4.0); LYMPHOCYTES % (AUTO) 20 % (12-44); MEAN CORPUSCULAR HEMOGLOBIN 28 pg (25-34); MEAN CORPUSCULAR HGB CONC 33 g/dL (32-36); MEAN CORPUSCULAR VOLUME 84 fL (80-99); MEAN PLATELET VOLUME 11.2 fL (9.0-12.2); MONOCYTES # (AUTO) 0.7 10^3/uL (0.0-1.0); MONOCYTES % (AUTO) 10 % (0-12); NEUTROPHILS % (AUTO) 69 % (42-75); PLATELET COUNT 212 10^3/uL (130-400); WHITE BLOOD COUNT 7.3 10^3/uL (4.3-11.0)
[2020-04-18 06:10] LABS: CHLORIDE 104 MMOL/L (98-107); POTASSIUM 3.1 MMOL/L (3.6-5.0); SODIUM 138 MMOL/L (135-145)
[2020-04-18 06:11] LABS: CALCIUM 9.2 MG/DL (8.5-10.1)
[2020-04-18 06:12] LABS: GLUCOSE 118 MG/DL (70-105)
[2020-04-18 06:13] LABS: CARBON DIOXIDE 22 MMOL/L (21-32)
[2020-04-18 06:15] LABS: CREATININE SERUM 0.79 MG/DL (0.60-1.30); GFR ESTIMATED > 60; PHOSPHORUS 3.8 MG/DL (2.3-4.7)
[2020-04-18 06:16] LABS: BUN/CREATININE RATIO 16
[2020-04-18] MEDS: POTASSIUM CL 10MEQ/50ML IVPB 50 ML IV SCH (06:16)
[2020-04-18] MEDS: KCL 20 MEQ TAB (K-DUR) PO SCH ×3 (06:17→09:34)
[2020-04-18] MEDS: MAGNESIUM 1 GM/100 ML IVPB 100 ML IV SCH (06:30)
[2020-04-18] MEDS: dexAMETHasone 6 MG TAB (DECADRON) PO SCH (06:48)
[2020-04-18] MEDS ORDERED: APIX5TAB PO (08:07)
[2020-04-18] MEDS ORDERED: MTP25TSR PO (08:07)
[2020-04-18] MEDS ORDERED: DILT240C91 PO (08:07)
[2020-04-18] MEDS ORDERED: ASPI-1238 PO (08:07)
[2020-04-18] MEDS ORDERED: HYDR25TA4 PO (08:07)
[2020-04-18 08:20] VITALS: BP 141/90
--- NOTE | 2020-04-18 08:44 | Diagnostic Imaging Report ---
INDICATION: Dyspnea COMPARISON STUDY: Chest from 2 days ago. FINDINGS: Frontal view chest demonstrate the heart size to be smaller. Patchy bilateral pulmonary infiltrates have nearly resolved. There are no pleural effusions. IMPRESSION: 1. Pulmonary infiltrates have nearly resolved. 2. Heart size appears smaller. Dictated by: Dictated on workstation # [id number]
[2020-04-18] MEDS ORDERED: HYDROCHLOROTHIAZIDE 25 MG (HCTZ) TAB PO SCH (09:00)
[2020-04-18] MEDS: REMDESIVIR INJ 100 MG in NS (IVPB) 230 ML IV SCH (09:33)
[2020-04-18] MEDS: PANTOPRAZOLE 40 MG (PROTONIX) VIAL IV SCH (09:34)
[2020-04-18] MEDS: LOSARTAN 100 MG (COZAAR) TABLET PO SCH (09:34)
[2020-04-18] MEDS: ASPIRIN E.C. 81 MG (ECOTRIN) TAB PO SCH (09:34)
[2020-04-18] MEDS: APIXABAN 5 MG (ELIQUIS) TABLET PO SCH (10:33)
--- NOTE | 2020-04-18 11:22 | Discharge Summary ---
Discharge Summary Hospital Course Was the Problem List Reviewed?: Yes Problems/Dx: (1) Acute respiratory failure due to COVID-19 Status: Acute (2) Paroxysmal atrial fibrillation Status: Acute (3) Elevated LFTs Status: Acute (4) HTN (hypertension) Status: Acute Qualifiers: Qualified Codes: I10 - Essential (primary) hypertension (5) Obesity Status: Chronic (6) Hypokalemia Status: Acute (7) Hypomagnesemia Status: Acute Hospital Course Date of Admission: Apr 14, 2020 at 20:03 Admission Diagnosis : Paroxysmal atrial fibrillation with rapid ventricular response Family Physician/Provider: Will Zayas MD Date of Discharge: 04/18/20 Discharge Diagnosis: Paroxysmal atrial fibrillation with rapid ventricular response, acute respiratory failure due to COVID-19 Hospital Course: Bubba Brewer is a 59-year-old male who was admitted with new onset paroxysmal atrial fibrillation with rapid ventricular response. He was admitted to the ICU and put on a Cardizem drip. Cardiology was consulted and assisted with his care. He was started on oral Cardizem and metoprolol. He was started on Eliquis for stroke prophylaxis. His course was complicated by acute respiratory failure due to COVID-19. He was treated with Decadron, Remdesivir, and convalescent plasma. He was not requiring any supplemental oxygen at the time of discharge. His course was also complicated by an elevated troponin level. He will undergo a stress test as an outpatient. He also had issues with elevated blood pressure and was started on hydrochlorothiazide. He was continued on his losartan. He should follow-up with cardiology and his primary care physician. Labs and Pending Lab Test: Laboratory Tests 04/17/20 14:18: Potassium Level 4.0 04/18/20 05:35: Potassium Level 3.1L, White Blood Count 7.3, Red Blood Count 4.72, Hemoglobin 13.1L, Hematocrit 39L, Mean Corpuscular Volume 84, Mean Corpuscular Hemoglobin 28, Mean Corpuscular Hemoglobin Concent 33, Red Cell Distribution Width 14.6H, Platelet Count 212, Mean Platelet Volume 11.2, Immature Granulocyte % (Auto) 1, Neutrophils (%) (Auto) 69, Lymphocytes (%) (Auto) 20, Monocytes (%) (Auto) 10, Eosinophils (%) (Auto) 0, Basophils (%) (Auto) 0, Neutrophils # (Auto) 5.0, Lymphocytes # (Auto) 1.4, Monocytes # (Auto) 0.7, Eosinophils # (Auto) 0.0, Basophils # (Auto) 0.0, Immature Granulocyte # (Auto) 0.1, Sodium Level 138, Chloride Level 104, Carbon Dioxide Level 22, Anion Gap 12, Blood Urea Nitrogen 13, Creatinine 0.79, Estimat Glomerular Filtration Rate > 60, BUN/Creatinine Ratio 16, Glucose Level 118H, Calcium Level 9.2, Phosphorus Level 3.8, Magnesium Level 2.0 Microbiology 04/14/20 MRSA Screen - Final, Complete MRSA not isolated Home Meds Active Hydrochlorothiazide 25 Mg Tablet 25 Mg PO DAILY 30 Days Aspirin EC (Aspirin) 81 Mg Tablet.dr 81 Mg PO DAILY 30 Days Eliquis (Apixaban) 5 Mg Tablet 5 Mg PO BID 30 Days Metoprolol Succinate 25 Mg Tab.er.24h 25 Mg PO DAILY 30 Days Diltiazem 24Hr ER (Diltiazem HCl) 240 Mg Cap.er.24h 240 Mg PO DAILY 30 Days Reported Losartan Potassium 100 Mg Tablet 100 Mg PO DAILY Pantoprazole Sodium 40 Mg Tablet.dr 40 Mg PO DAILY Assessment/Pt Instructions Take medications as prescribed. You're being started on new medications for atrial fibrillation and high blood pressure. You're being started on a blood t hinner for stroke prophylaxis. You need to follow up with cardiology for a stress test. You should follow-up with your primary care physician. Discharge Planning: >30 minutes discharge planning Discharge Instructions Discharge Diet: Low Sodium Diet Activity as Tolerated: Yes Consultations Cardiology Discharge Physical Examination Vital Signs Vital Signs Date Time Temp Pulse Resp B/P (MAP) Pulse Ox O2 Delivery O2 Flow Rate FiO2 04/18/20 08:20 36.8 80 16 141/90 (107) 94 Room Air 04/18/20 00:53 1.00 General Appearance: No Apparent Distress, Obese HEENT: PERRL/EOMI, Pharynx Normal Respiratory: Lungs Clear, Normal Breath Sounds, No Respiratory Distress Cardiovascular: Regular Rate, Rhythm, No Edema, No Murmur Gastrointestinal: Normal Bowel Sounds, Non Tender, Soft Extremity: Normal Inspection, Non Tender, No Pedal Edema Skin: Normal Color, Warm/Dry Neurologic/Psychiatric: Alert, Oriented x3, No Motor/Sensory Deficits, Normal Mood/Affect Allergies: Coded Allergies: No Known Drug Allergies (Unverified , 04/14/20) Discharge Summary Date of Admission Apr 14, 2020 at 20:03 Date of Discharge Discharge Date: Apr 18, 2020 Discharge Time: 12:00 Admission Diagnosis Paroxysmal atrial fibrillation with rapid ventricular response Consults/Procedures Consulations cardiology Discharge Diagnosis Paroxysmal atrial fibrillation with RVR, Acute respiratory failure due to COVID- 19 (1) Acute respiratory failure due to COVID-19 Status: Acute (2) Paroxysmal atrial fibrillation Status: Acute (3) Elevated LFTs Status: Acute (4) HTN (hypertension) Status: Acute Qualifiers: Qualified Codes: I10 - Essential (primary) hypertension (5) Obesity Status: Chronic (6) Hypokalemia Status: Acute (7) Hypomagnesemia Status: Acute RUTHIE CROCKER MD Apr 18, 2020 11:21
--- NOTE | 2020-04-19 14:29 | Physician Query Clarification ---
PQ-Further Specificity Admission/Discharge Admission Date: Apr 14, 2020 at 20:03 Discharge Date: Apr 18, 2020 at 14:15 Dr. Crocker, The medical record reflects the following clinical scenario: History/Risk Factors: Covid, Acute Respiratory Failure Clinical Findings: elevated troponin 0.207 Treatment: Diltiazem, Toprol, convalenscent plasma, Remdesivir Question: Can you further specify the elevated troponin per the clinical gala cators above? Please document a response in the Progress Notes or Discharge Summary. 1. Type 2 AL 2. Elevated troponin not further specified. 3. Other, with explanation of the clinical findings. 4. Clinically undetermined, no explanation for the clinical findings. PHYSICIAN RESPONSE Can you specify per above: 1 Please remember a lack of response to the above will prompt a phone page by CDI/Coding staff. In responding to this query, please exercise your independent professional judgment. The purpose of this communication is to more accurately reflect the complexity of your patients condition. The fact that a question is asked does not imply that any particular answer is desired or expected. Thank you for your timely response to this clarification. Requestors name: [email or web address] THIS PHYSICIAN QUERY FORM IS A PERMANENT PART OF THE MEDICAL RECORD SARAH MELTON Apr 19, 2020 14:29 RUTHIE CROCKER MD May 05, 2020 19:30
--- NOTE | 2020-04-19 14:34 | Physician Query Clarification ---
PQ-Conflicting Diagnosis Admission/Discharge Admission Date: Apr 14, 2020 at 20:03 Discharge Date: Apr 18, 2020 at 14:15 Dr. Crocker, The medical record reflects the following clinical scenario: History/Risk Factors: Covid, acute respiratory failure Clinical Findings: . Moderate multifocal groundglass opacities in both lungs compatible with reported COVID pneumonitis. Treatment: convalescent plasma, Remdesivir Question: Do you agree with the impression of the covid pneumonia per marking room supervisor Dr. Granado and Dr. Chen Please document a response in Progress Note or Discharge Summary. 1. Yes 2. No 3. Other, with explanation of clinical findings 4. Clinically undetermined, no explanation for clinical findings. PHYSICIAN RESPONSE Do you agree w/Consulting Dx?: Yes Please remember a lack of response to the above will prompt a phone page by CDI/Coding staff. In responding to this query, please exercise your independent professional judgment. The purpose of this communication is to more accurately reflect the complexity of your patients condition. The fact that a question is asked does not imply that any particular answer is desired or expected. Thank you for your timely response to this clarification. Requestors name: [email or web address] THIS PHYSICIAN QUERY FORM IS A PERMANENT PART OF THE MEDICAL RECORD CHIP MELTON Apr 19, 2020 14:34 RUTHIE CROCKER MD May 05, 2020 19:32
== END 2020-04-18 14:15 | disposition home or self-care (01) | DRG 177 ==
LOC: ER FS 14:58 → ICU 20:03 → 4TH 04-16 11:50
PROVIDERS: ADMIT Internal Medicine; ATTEND Internal Medicine
PROC: XW033E5 Introduction of Remdesivir Anti-infective into Peripheral Vein, Percutaneous Approach, New Technology Group 5 (ICD-10-PCS; principal; 2020-04-15)
PROC: XW13325 Transfusion of Convalescent Plasma (Nonautologous) into Peripheral Vein, Percutaneous Approach, New Technology Group 5 (ICD-10-PCS; 2020-04-16)
DX: U07.1 COVID-19 (principal); J12.82 Pneumonia due to coronavirus disease 2019; J96.00 Acute respiratory failure, unspecified whether with hypoxia or hypercapnia; I21.A1 Myocardial infarction type 2; I48.92 Unspecified atrial flutter; I10 Essential (primary) hypertension; I48.0 Paroxysmal atrial fibrillation; E83.42 Hypomagnesemia; E87.6 Hypokalemia; K21.9 Gastro-esophageal reflux disease without esophagitis; E78.00 Pure hypercholesterolemia, unspecified; E66.9 Obesity, unspecified; Z68.38 Body mass index [BMI] 38.0-38.9, adult; R74.02 Elevation of levels of lactic acid dehydrogenase [LDH]; Z87.891 Personal history of nicotine dependence; Z85.830 Personal history of malignant neoplasm of bone; Z73.0 Burn-out
CPT/HCPCS: 36415; 71045; 71275; 80048; 80053; 80061; 80076; 80162; 82248; 83735; 83880; 84100; 84132; 84484; 85025; 85027; 86900; 86901; 87081; 93005; 94760; 94761; 96365; 96366; 96372

== ENCOUNTER → 2022-04-28 | Outpatient (CLI) | payer OTHER ==
[~2022-04-28] MED LIST: APIX5TAB PO; ASPI-1238 PO; DILT240C91 PO; HYDR25TA4 PO; LOSA100T57 PO; Losartan; MTP25TSR PO; PANT40TA52 PO
[2022-04-28 16:57] LABS: BASOPHILS # (AUTO) 0.2 10^3/uL (0.0-0.1); BASOPHILS % (AUTO) 2 % (0-10); EOSINOPHILS # (AUTO) 0.4 10^3/uL (0.0-0.3); EOSINOPHILS % (AUTO) 5 % (0-10); HEMATOCRIT 42 % (40-54); HEMOGLOBIN 14.9 g/dL (13.3-17.7); LYMPHOCYTES # (AUTO) 2.7 10^3/uL (1.0-4.0); LYMPHOCYTES % (AUTO) 29 % (12-44); MEAN CORPUSCULAR HEMOGLOBIN 32 pg (25-34); MEAN CORPUSCULAR HGB CONC 36 g/dL (32-36); MEAN CORPUSCULAR VOLUME 89 fL (80-99); MEAN PLATELET VOLUME 9.9 fL (9.0-12.2); MONOCYTES # (AUTO) 0.9 10^3/uL (0.0-1.0); MONOCYTES % (AUTO) 10 % (0-12); NEUTROPHILS # (AUTO) 5.1 10^3/uL (1.8-7.8); NEUTROPHILS % (AUTO) 54 % (42-75); PLATELET COUNT 264 10^3/uL (130-400); WHITE BLOOD COUNT 9.4 10^3/uL (4.3-11.0)
[2022-04-28 17:14] LABS: INR 0.9 (0.8-1.4); PROTHROMBIN TIME PATIENT 12.9 SEC (12.2-14.7)
== END ==
LOC: LAB FS 16:23
PROVIDERS: ATTEND Internal Medicine
DX: R04.0 Epistaxis (principal)
CPT/HCPCS: 36415; 85025; 85610; 85730

== ENCOUNTER → 2023-01-17 | Outpatient (CLI) | payer OTHER ==
[~2023-01-17] MED LIST changes: -LOSA100T57 PO; +LOSA100T58 PO
--- NOTE | 2023-01-17 19:05 | Diagnostic Imaging Report ---
Indication: Right knee pain AP and oblique and lateral views of the right knee are obtained. No fracture or acute bony abnormality seen. There is moderate medial joint space narrowing with osteophyte formation. Lateral compartments preserved. There is mild patellofemoral spurring. There is no definite joint effusion. Impression: Moderate degenerative changes of the right knee with no acute abnormality. Dictated on workstation # [id number]
== END ==
LOC: RAD FS 12:40
PROVIDERS: ATTEND Registered Nurse Emergency
DX: M17.11 Unilateral primary osteoarthritis, right knee (principal); M25.562 Pain in left knee; R25.2 Cramp and spasm; R53.83 Other fatigue
CPT/HCPCS: 73562